=== PATIENT | male | born 1980 | race Caucasian/White ===

== ENCOUNTER 2018-08-29 08:09 | Emergency (ER) | payer OTHER, MEDICAID, SELFPAY ==
[2018-08-29 08:14] VITALS: BP 149/89; PULSE 93; RESP 16; TEMP 36.1; O2SAT 99; BMI 40.7
--- NOTE | 2018-08-29 08:48 | ED_ITS ---
HPI - Dental/Oral General Chief complaint: Dental/Oral Stated complaint: antibiotics for back tooth Time Seen by Provider: 08/29/18 08:23 Source: patient Mode of arrival: ambulatory Limitations: no limitations History of Present Illness HPI Narrative: Patient comes to the emergency department complaining of pain in his left posterior most molar for the last few months on and off, but worse over the past day. Patient states that he has had at least partial loss of the filling in that tooth, which precipitated the pain. He has been on antibiotics recently, but ran out, and states that the pain has recurred since the antibiotics ran. Patient states that he is not having any fevers or chills, and has not noticed any drainage from the tooth or swelling in his face or his gingiva. He denies any new trauma to the tooth. Patient states he has a dental appointment in about a week. He states he is mainly here because he needs better pain control, and wants to prevent recurrence of infection, which would preclude him from getting his dental extraction. No other complaints at this time. Related Data Previous Rx's Medication Instructions Recorded amoxicillin 500 mg PO TID #21 cap 08/29/18 hydrocodone-acetaminophen 1 tab PO Q4H PRN #20 tab 08/29/18 Allergies Allergy/AdvReac Type Severity Reaction Status Date / Time vancomycin Allergy Verified 08/29/18 08:14 Review of Systems Constitutional Denies chills, Denies fever(s), Denies lethargy and Denies weakness Eyes Denies change in vision, Denies eye discharge, Denies irritation and Denies loss of vision ENT Ears, Nose, Mouth, and Throat: Denies change in voice, Reports dental pain, Denies neck pain and Denies sore throat Cardiovascular Denies chest pain, Denies irregular heart rhythm, Denies lightheadedness, Denies palpitations, Denies dyspnea, Denies dyspnea on exertion and Denies orthopnea Respiratory Denies cough, Denies dyspnea, Denies dyspnea on exertion and Denies wheezing Gastrointestinal Gastrointestinal: Denies abdominal pain, Denies change in bowel habits, Denies diarrhea, Denies nausea and Denies vomiting Genitourinary Denies hematuria, Denies flank pain, Denies urinary incontinence and Denies urinary urgency Musculoskeletal Denies neck pain Integumentary/Breasts Denies pruritus, Denies erythema, Denies rash and Denies wounds Neurologic Denies confusion, Denies loss of vision and Denies weakness Psychiatric Denies anxiety, Denies confusion, Denies depression, Denies homicidal ideation and Denies suicidal ideation Endocrine Denies palpitations Hematologic/Lymphatic Denies easy bruising Allergic/Immunologic Denies wheezing [facility] Medical History Toothache (Acute) Dental caries (Acute) Surgical History No pertinent past surgical history (Acute) Social History Smoking Status: Never smoker Social History Smoking Status: Never smoker Exam Initial Vital Signs Initial Vital Signs: Vital Signs Temperature 97 F L 08/29/18 08:14 Pulse Rate 93 H 08/29/18 08:14 Respiratory Rate 16 08/29/18 08:14 Blood Pressure 149/89 H 08/29/18 08:14 Pulse Oximetry 99 08/29/18 08:14 Const General: cooperative and well developed Nutritional Appearance: well nourished Orientation: alert, awake, oriented x3 and not confused HENGA Head: normocephalic and atraumatic Ears: external ears normal and TM's normal bilaterally Nose: external nose normal and No nasal discharge Face and sinus: normal facial exam, sinuses nontender, face symmetric, no sinus tenderness, no tenderness (Patient has no tenderness or swelling of the face.) and No dry mucous membranes Mouth: oral mucosae normal and moist mucous membranes Teeth and gingiva: gingiva normal (No abscess or swelling) and caries (Patient has loss of the filling in tooth 18., with some caries surrounding.) Throat: tonsils normal and uvula midline Eyes General: appearance normal, both eyes and all related structures Eyelids: eyelids normal Conjunctivae: conjunctivae normal Sclera: sclerae normal Pupils: PERRL EOM: EOM intact bilaterally Neck Neck: normal visual inspection, trachea midline, No lymphadenopathy, No midline deformity and No JVD Lymphatic: No lymphedema Chest Chest: normal inspection of the chest Resp Effort & Inspection: normal respiratory effort, able to speak in complete sentences, no respiratory distress and no use of accessory muscles Auscultation: clear to auscultation bilaterally, no rales, no rhonchi and no wheezes Cardio Rate: regular rate Rhythm: regular rhythm Heart Sounds: no click, no gallops, no murmurs and no rubs Pulses: normal peripheral pulses GI Inspection: non-distended Palpation: soft, no hepatosplenomegaly, No guarding, No pulsatile mass and No tender Auscultation: normal bowel sounds Back/Spine/Pelvis Back: No CVA tenderness Cervical Spine: cervical ROM normal and No pain with cervical ROM Thoracic/Lumbar Spine: thoracic and lumbar spine normal to inspection Skin General: no rashes or lesions noted, No jaundice and No petechiae Neuro General: alert, oriented x3, gait normal and no focal motor deficits Speech: speech normal Extrem General: full ROM, no clubbing, cyanosis or edema, no pedal edema and no calf tenderness Psych Appearance: well kempt Mental Status: mental status grossly normal Attitude: cooperative Thought Content: normal and suicidality Judgment: judgment good Course Course Narrative: I discussed with the patient that I will restart him on his amoxicillin and will start analgesia, as well. Patient should continue his plans to follow up with the dental clinic in a week, as he is scheduled to do. We have discussed the usual indications for return, as well as home management of the symptoms. Vital Signs - 8 hr 08/29/18 08:14 Temperature 97 F L Pulse Rate 93 H Respiratory Rate 16 Blood Pressure 149/89 H Pulse Oximetry 99 [facility] - Dental/Oral Medical Records Attestation: I reviewed the patient's medical records. Discharge Plan Departure Patient Disposition: Home Clinical Impression: Toothache, Dental caries Instructions: DI for Dental Pain Activity Restrictions/Additional Instructions: Please take the medication, as directed, and continue your plans to follow up next week with the dentist. If you develop high fevers or facial swelling, please seek medical re-evaluation. Prescriptions: New amoxicillin 500 mg capsule 500 mg PO TID Qty: 21 RF: 0 hydrocodone-acetaminophen 5-325 mg tablet 1 tab PO Q4H PRN (Reason: pain) Qty: 20 RF: 0
== END 2018-08-29 08:46 | disposition home or self-care (01) ==
LOC: ED 08:48
PROVIDERS: Emergency Provider Emergency Medicine
DX: K08.89 Other specified disorders of teeth and supporting structures (principal)
CPT/HCPCS: 99283

== ENCOUNTER 2018-11-02 11:28 | Emergency (ER) | payer OTHER, MEDICAID, SELFPAY ==
[2018-11-02 11:34] VITALS: BP 138/101; PULSE 87; RESP 16; TEMP 36.8; O2SAT 96; BMI 42.5
--- NOTE | 2018-11-02 12:34 | DI.RAD.S_ITS ---
PROCEDURE: XR FOOT LT MIN 3V INDICATIONS: sudden onset of swelling/red/pain TECHNIQUE: 3 views of the foot were acquired. COMPARISON: [facility], CR, XR FOOT RT MIN 3V, 11/02/2018, 12:36. FINDINGS: Bones: No fractures or dislocations. No suspicious bony lesions. A small Achilles spur is present. There mild degenerative changes of the talonavicular joint with probable previous ligamentous injury. Soft tissues: No tibiotalar joint effusion. Achilles tendon appears normal in thickness. IMPRESSION: No acute osseous abnormality of the left foot. Dictated by: Naresh Conrad M.D. on 11/02/2018 at 12:00 Approved by: Naresh Conrad M.D. on 11/02/2018 at 12:08
--- NOTE | 2018-11-02 12:37 | DI.RAD.S_ITS ---
PROCEDURE: XR FOOT RT MIN 3V INDICATIONS: sudden onset of right heel pain TECHNIQUE: 4 views of the foot were acquired. COMPARISON: None. FINDINGS: Bones: No fractures or dislocations. No suspicious bony lesions. There is a small Achilles spur. Soft tissues: No tibiotalar joint effusion. Achilles tendon appears normal. IMPRESSION: No acute osseous abnormality of the right foot. Dictated by: Naresh Conrad M.D. on 11/02/2018 at 11:54 Approved by: Naresh Conrad M.D. on 11/02/2018 at 12:00
--- NOTE | 2018-11-02 12:40 | PC.NURSE ---
sudden onset of left great toe/foot pain, right heel pain with swelling and pain, denies trauma,injuries. father has hx of gout.
--- NOTE | 2018-11-02 12:45 | ED.LOWEXIN ---
HPI - Extremity Injury (Lower) <Danelle Rios PA-C - Last Filed: 11/02/18 18:25> General Chief Complaint: Extremity Injury, Lower Stated Complaint: left big toe and right heel pain Time Seen by Provider: 11/02/18 12:39 Source: patient Mode of arrival: ambulatory Limitations: no limitations History of Present Illness HPI Narrative: This 38 year old male comes to ED due to worsening left great toe pain since last night. He has also had some milder pain in the right heel which is not keeping him from walking, however the left great toe is very painful with any pressure. He states that he was fishing yesterday, denies any pain or trauma then. He denies any bites or any type of recent injury. He has not had pain like this before but notes that his dad has gout and wonders if it could be the same. He denies fever, denies any other joint pain or other complaints Related Data Previous Rx's Medication Instructions Recorded colchicine 0.6 mg PO Q1H #2 tab 11/02/18 naproxen 500 mg PO Q12H #14 tab 11/02/18 Allergies Allergy/AdvReac Type Severity Reaction Status Date / Time vancomycin Allergy Verified 11/02/18 11:33 Review of Systems <Danelle Rios PA-C - Last Filed: 11/02/18 18:25> Review of Systems ROS Unobtainable: All systems reviewed & are unremarkable except as noted in HPI and below PFSH <Danelle Rios PA-C - Last Filed: 11/02/18 18:25> Medical History (Updated 11/02/18 @ 14:12 by Danelle Rios PA-C) Dental caries (Inactive) No chronic problems (Acute) Toothache (Inactive) Surgical History No pertinent past surgical history (Acute) Social History Smoking Status: Never smoker Social History Smoking Status: Never smoker Exam <Danelle Rios PA-C - Last Filed: 11/02/18 18:25> Narrative Exam Narrative: GENERAL APPEARANCE: Patient sitting comfortably, in no distress. LUNGS: Clear to auscultation bilaterally. HEART: Regular rate and rhythm without murmur, normal S1, S2, no S3 or S4. EXTREMITIES: No cyanosis or calf edema. No calf tenderness NEUROVASCULAR: Toes are warm and pink with brisk cap refill, sensation grossly intact over the lower extremities MUSCULOSKELETAL: Right foot and ankle there is no effusion. Minimal tenderness to palpation at the distal border of the Achilles insertion. At is intact by palpation. No tenderness elsewhere. He has full active range of motion of the foot and toes with mild tenderness on full dorsiflexion. Left foot great toe there is a localized effusion. Exquisite tenderness over the MTP joint. No tenderness elsewhere over the toes, foot, or ankle. He is able to dorsiflex and plantar flex against resistance with tenderness DERMATOLOGIC: Left great toe is erythematous, warm to touch. No bites or wounds on either foot Initial Vital Signs Initial Vital Signs: Vital Signs Temperature 98.2 F 11/02/18 11:34 Pulse Rate 87 11/02/18 11:34 Respiratory Rate 16 11/02/18 11:34 Blood Pressure 138/101 H 11/02/18 11:34 Pulse Oximetry 96 11/02/18 11:34 <Lori Jacobs MD - Last Filed: 11/03/18 08:18> Initial Vital Signs Initial Vital Signs: Vital Signs Temperature 98.2 F 11/02/18 11:34 Pulse Rate 87 11/02/18 11:34 Respiratory Rate 16 11/02/18 11:34 Blood Pressure 138/101 H 11/02/18 11:34 Pulse Oximetry 96 11/02/18 11:34 Course <Danelle Rios PA-C - Last Filed: 11/02/18 18:25> Orders Ordered: ED Orders 11/02/18 12:34 XR foot LT min 3V Stat 11/02/18 12:37 XR foot RT min 3V Stat Vital Signs Vital signs: Vital Signs - 8 hr 11/02/18 11:34 11/02/18 13:38 Temperature 98.2 F Pulse Rate 87 76 Respiratory Rate 16 16 Blood Pressure 138/101 H Blood Pressure [Left Arm] 139/95 H Pulse Oximetry 96 98 <Lori Jacobs MD - Last Filed: 11/03/18 08:18> Orders Ordered: ED Orders 11/02/18 12:34 XR foot LT min 3V Stat 11/02/18 12:37 XR foot RT min 3V Stat Vital Signs Vital signs: Vital Signs - 8 hr 11/02/18 11:34 11/02/18 13:38 Temperature 98.2 F Pulse Rate 87 76 Respiratory Rate 16 16 Blood Pressure 138/101 H Blood Pressure [Left Arm] 139/95 H Pulse Oximetry 96 98 Discharge Plan Departure Patient Disposition: Home Clinical Impression: Gout Qualifiers: Gout site: toe Gout etiology: idiopathic Chronicity: acute Laterality: left Qualified Code(s): M10.072 - Idiopathic gout, left ankle and foot Discharge Date/Time: 11/02/18 14:21 Instructions: DI for Gout Activity Restrictions/Additional Instructions: Please start the prescription naproxen (prescription strength Aleve) when you pick it up, and take twice daily. You can add Tylenol as needed but do not take other NSAIDs such as ibuprofen. Take 1 dose of colchicine when you pick it up and the 2nd dose an hour later. As we talked about, you should return to the ED if you have any acutely worsening symptoms or new symptoms such as fever, otherwise this typically improves quickly with these medications. Please follow-up with your PCP next week. I suspect that you have a mild strain in the right ankle area which may be due to compensating for trying to keep pressure off of your left foot. You do have some arthritis type changes there but no acute problems found on your x-rays Prescriptions: New naproxen 500 mg tablet 500 mg PO Q12H Qty: 14 RF: 0 colchicine 0.6 mg tablet 0.6 mg PO Q1H Qty: 2 RF: 0
[2018-11-02 13:38] VITALS: BP 139/95; PULSE 76; RESP 16; O2SAT 98
== END 2018-11-02 14:21 | disposition home or self-care (01) ==
PROVIDERS: Emergency Provider Internal Medicine
DX: M10.072 Idiopathic gout, left ankle and foot (principal)
CPT/HCPCS: 73630; 99283

== ENCOUNTER → 2018-11-17 09:15 | Outpatient (CLI) | payer OTHER, MEDICAID, SELFPAY ==
[2018-11-17 10:58] LABS: Alanine Aminotransferase 41 IU/L (21-72); Albumin 4.4 g/dL (3.5-5.0); Albumin Globulin Ratio 1.5 (1.0-2.8); Alkaline Phosphatase 72 U/L (38-126); Aspartate Aminotransferase 26 IU/L (17-59); Bilirubin Total 0.8 mg/dL (0.2-1.3); Blood Urea Nitrogen 22 mg/dL (9-20); Calcium 9.8 mg/dL (8.4-10.2); Carbon Dioxide 27 mmol/L (22-32); Chloride 103 mmol/L (98-107); Estimated Glomerular Filt Rate > 60.0 mL/min (>60); Glucose 77 mg/dL (70-100); HEMOLYSIS < 15 (0-50); Potassium 4.1 mmol/L (3.4-5.1); Sodium 143 mmol/L (137-145); Total Protein 7.4 g/dL (6.3-8.2); Uric Acid 9.6 mg/dL (3.5-8.5)
== END ==
PROVIDERS: PCP Hospitalist; Visit Provider Hospitalist
DX: M10.9 Gout, unspecified (principal)
CPT/HCPCS: 36415; 80053; 84550

== ENCOUNTER → 2019-03-13 14:05 | Outpatient (CLI) | payer OTHER, MEDICAID, SELFPAY ==
[2019-03-13 15:35] LABS: BUN Creatinine Ratio 21.4 (6-22); Blood Urea Nitrogen 15 mg/dL (9-20); Calcium 9.7 mg/dL (8.4-10.2); Carbon Dioxide 27 mmol/L (22-32); Chloride 105 mmol/L (98-107); Estimated Glomerular Filt Rate > 60.0 mL/min (>60); Glucose 92 mg/dL (70-100); HEMOLYSIS < 15 (0-50); Potassium 4.3 mmol/L (3.4-5.1); Sodium 140 mmol/L (137-145); Uric Acid 6.4 mg/dL (3.5-8.5)
== END ==
PROVIDERS: Hospitalist; PCP Nurse Practitioner Family; Visit Provider Nurse Practitioner Family
DX: M10.9 Gout, unspecified (principal)
CPT/HCPCS: 36415; 80048; 84550

== ENCOUNTER → 2019-09-14 10:52 | Outpatient (CLI) | payer OTHER, MEDICAID, SELFPAY ==
[2019-09-14 12:38] LABS: Alanine Aminotransferase 55 IU/L (<50); Albumin 4.2 g/dL (3.5-5.0); Albumin Globulin Ratio 1.4 (1.0-2.8); Alkaline Phosphatase 67 U/L (38-126); Aspartate Aminotransferase 49 IU/L (17-59); BUN Creatinine Ratio 23.7 (6-22); Bilirubin Total 0.5 mg/dL (0.2-1.3); Blood Urea Nitrogen 18 mg/dL (9-20); Calcium 9.8 mg/dL (8.4-10.2); Carbon Dioxide 26 mmol/L (22-32); Chloride 104 mmol/L (98-107); Estimated Glomerular Filt Rate > 60.0 mL/min (>60); Glucose 87 mg/dL (70-100); HEMOLYSIS < 15 (0-50); Potassium 4.4 mmol/L (3.4-5.1); Sodium 139 mmol/L (137-145); Total Protein 7.2 g/dL (6.3-8.2)
== END ==
PROVIDERS: PCP Internal Medicine; Referring Provider Internal Medicine; Visit Provider Internal Medicine
DX: L40.9 Psoriasis, unspecified (principal); M10.9 Gout, unspecified; M67.88 Other specified disorders of synovium and tendon, other site
CPT/HCPCS: 36415; 80053; 84550

== ENCOUNTER → 2023-09-22 16:46 | Outpatient (CLI) | payer OTHER, SELFPAY ==
[2023-09-22 18:08] LABS: Add Manual Diff / Slide Review NO; Basophils Absolute Auto 0 /uL (0-100); Basophils Percent Auto 0.4 % (0-2); Eosinophils Absolute Auto 100 /uL (0-450); Eosinophils Percent Auto 1.6 % (2-4); Hematocrit 41.7 % (41-53); Hemoglobin 14.4 g/dL (13.5-17.5); Lymphocytes Absolute Auto 1900 /uL (1100-4500); Mean Corpuscular HGB Conc 34.5 % (30-36); Mean Corpuscular Hemoglobin 30.5 PG (26-34); Mean Corpuscular Volume 88.3 fL (80-100); Monocytes Absolute Auto 800 /uL (0-900); Monocytes Percent Auto 10.1 % (3-14); Neutrophils Absolute Auto 4700 /uL (1500-7000); Neutrophils Percent Auto 62.9 % (50-75); Platelet Count 273 X10^3/uL (150-400); Red Blood Cell Count 4.72 X10^6/uL (4.5-5.9); Red Cell Distribution Width 13.4 % (11.6-14.8); White Blood Cell Count 7.5 X10^3/uL (4.5-11.0)
[2023-09-22 18:30] LABS: Alanine Aminotransferase 50 IU/L (<50); Albumin 4.6 g/dL (3.5-5.0); Albumin Globulin Ratio 1.5 (1.0-2.8); Alkaline Phosphatase 101 U/L (38-126); Aspartate Aminotransferase 33 IU/L (17-59); BUN Creatinine Ratio 20.2 (6-22); Bilirubin Total 0.5 mg/dL (0.2-1.3); Blood Urea Nitrogen 21 mg/dL (9-20); Calcium 9.6 mg/dL (8.4-10.2); Carbon Dioxide 22 mmol/L (22-32); Chloride 106 mmol/L (98-107); Estimated Glomerular Filt Rate > 60 mL/min (>60); Glucose 100 mg/dL (70-100); HEMOLYSIS < 15 (0-50); Potassium 4.4 mmol/L (3.4-5.1); Sodium 140 mmol/L (137-145); Total Protein 7.6 g/dL (6.3-8.2); Uric Acid 6.7 mg/dL (3.5-8.5)
== END ==
PROVIDERS: PCP Internal Medicine; Referring Provider Internal Medicine; Visit Provider Internal Medicine
DX: M10.9 Gout, unspecified (principal); Z79.899 Other long term (current) drug therapy; D64.9 Anemia, unspecified
CPT/HCPCS: 36415; 80053; 84550; 85025